=== PATIENT | male | born 1960 | race Caucasian/White ===

== ENCOUNTER 2018-10-14 09:35 | Emergency (ER) | payer BC, OTHER ==
[2018-10-14] MEDS ORDERED: KETOROLAC 30 MG/ML VIAL IVP ONE (10:01)
[2018-10-14] MEDS ORDERED: DIAZEPAM (VALIUM) 5MG/ML **10ML VIAL IVP ONE (10:01)
[2018-10-14] MEDS ORDERED: 0.9% SODIUM CHLORIDE 250ML BAG IV ONE (10:01)
[2018-10-14] MEDS ORDERED: 0.9 % SODIUM CHLORIDE 1000ML 1,000 ML IV PRN (10:01)
--- NOTE | 2018-10-14 10:01 | Emergency Department Record ---
History of Present Illness - General Chief Complaint: Back Pain/Injury Stated Complaint: BACK PAIN/ABD PAIN Time Seen by Provider: 10/14/18 09:53 Source: Patient Mode of Arrival: Ambulatory - History of Present Illness Initial Comments: Pt with 4 days of pain in the left lower back. No trauma, injury, fall, or lifting. No urinary pain or blood, no fever, no N/V/D. Pain at times is intense and radiates across the left lower abdomen to the suprapubic area and to the tip of his penis. No testicular or scrotal pain. Saw Chiropractor with some relief. Pain in bed is better if lying supine "with my feet together" - any movement exacerbates the "spasms". 11:00AM pt recalls that her recently painted a room at home and was moving furniture. Lifting and moving. MD Complaint: Back pain Onset/Timin -: Days(s) Improves With: None Worsens With: None Associated Symptoms: Abdominal pain, Fever/chills, Nausea/vomiting - Related Data Home Medications Medication Instructions Recorded Confirmed Last Taken Tamsulosin HCl [Flomax] 0.4 mg PO DAILY 10/14/18 10/14/18 10/13/18 Previous Rx's Medication Instructions Recorded Diazepam [Valium] 10 mg PO Q8HR PRN 3 Days #9 tablet 10/14/18 Ibuprofen [Motrin] 800 mg PO Q8H PRN 5 Days #40 tab 10/14/18 Allergies Allergy/AdvReac Type Severity Reaction Status Date / Time No Known Drug Allergies Allergy Verified 10/14/18 09:50 Travel Screening - Travel/Exposure Within Last 30 Days Have you traveled within the last 30 days?: No - Travel/Exposure Within Last Year Have you traveled outside the [place] in the last year?: No - Additonal Travel Details Have you been exposed to anyone with a communicable illness?: No - Travel Symptoms Symptom Screening: None Review of Systems Constitutional: Denies: Chills, Fever, Night sweats, Weakness Eyes: Denies: Eye discharge, Photophobia ENT: Denies: Congestion, Ear pain Respiratory: Denies: Cough, Dyspnea Cardiovascular: Denies: Arrhythmia, Chest pain, Syncope Endocrine: Denies: Fatigue, Polydipsia, Polyuria Gastrointestinal: Reports: As per HPI, Abdominal pain Genitourinary: Denies: Discharge, Dysuria, Hematuria, Testicular pain, Urgency Musculoskeletal: Reports: As per HPI, Back pain Skin: Denies: Bruising, Rash Neurological: Denies: Abnormal gait, Headache, Tingling Psychiatric: Denies: Anxiety Hematological/Lymphatic: Denies: Anemia, Easy bleeding Past Medical History - SOCIAL HISTORY Smoking Status: Never smoker Alcohol Use: Heavy Alcohol Use Comment: 6 beers daily Drug Use: None - RESPIRATORY Hx Respiratory Disorders: No - CARDIOVASCULAR Hx Cardio Disorders: No - NEURO Hx Neuro Disorders: No - GI Hx GI Disorders: No - Hx Genitourinary Disorders: Yes Hx Prostate Problems: Yes - ENDOCRINE Hx Endocrine Disorders: No - MUSCULOSKELETAL Hx Musculoskeletal Disorders: No - PSYCH Hx Psych Problems: No - HEMATOLOGY/ONCOLOGY Hx Hematology/Oncology Disorders: No Family Medical History Any Significant Family History?: No Physical Exam - General General Appearance: Alert, Oriented x3, Cooperative, Moderate distress - Head Head exam: Atraumatic - Eye Eye exam: Normal appearance, PERRL - ENT ENT exam: Normal exam, Mucous membranes moist, Normal external ear exam, Normal orophraynx, TM's normal bilaterally - Neck Neck exam: Normal inspection, Full ROM. negative: Tenderness - Respiratory Respiratory exam: Normal lung sounds bilaterally. negative: Respiratory distress - Cardiovascular Cardiovascular Exam: Regular rate, Normal rhythm, Normal heart sounds - GI/Abdominal GI/Abdominal exam: Soft, Normal bowel sounds, Guarding, Tenderness (left lower lateral abd. ). negative: Distended, Rebound, Rigid - exam: Circumcision, Normal inspection. negative: Scrotal swelling, Testicular tenderness, Urethral discharge - Extremities Extremities exam: Normal inspection, Full ROM. negative: Calf tenderness, Tenderness - Back Back exam: Reports: Muscle spasm, Paraspinal tenderness, Tenderness (Intense pain to palpation point tender at L4-5 on the left with muscle spasm. Radiates to piriformis area left. No skin lesions. ) - Neurological Neurological exam: Alert, CN II-XII intact, Oriented X3, Reflexes normal - Psychiatric Psychiatric exam: Agitated, Normal affect, Normal mood - Skin Skin exam: Normal color. negative: Rash Course Vital Signs 10/14/18 09:44 Temperature 98.3 F Pulse Rate 78 Respiratory 20 Rate Blood Pressure 155/98 Pulse Ox 99 - Reevaluation(s) Reevaluation #1: 10/14/18 11:00 Resting with decreased spasm. Sat up and spasms returned. Long talk regarding the importance of meds and stretching. Will see his Chiropractor Tuesday. Taking the Motrina nd po Valium at home. No Alcohol or driving with meds. Medical Decision Making - Lab Data Result diagrams: 10/14/18 09:52 10/14/18 09:52 Disposition Disposition: Discharge Clinical Impression: Spasm of back muscles, Lumbar pain Disposition: Home, Self-Care Condition: (2) Stable Instructions: Muscle Spasm (ED), Lower Back Exercises (ED), Cold Compress or Soak (ED) Additional Instructions: Discharge Instructions: Return to ED if your symptoms worsen or if you have any concerns. Motrin and Valiem as directed. Follow-up with your family doctor in 3-5 days as directed. Prescriptions: Diazepam [Valium] 10 mg PO Q8HR PRN 3 Days #9 tablet PRN Reason: Muscle Spasms Ibuprofen [Motrin] 800 mg PO Q8H PRN 5 Days #40 tab PRN Reason: Pain - Mild To Moderate (1-7) Forms: Patient Portal Access Quality - Quality Measures Quality Measures: N/A - Blood Pressure Screening Does Patient Have Any of the Following: No Blood Pressure Classification: Hypertensive Reading Systolic Measurement: 151 Diastolic Measurement: 91 Screening for High Blood Pressure: < Pre-Hypertensive BP, F/U Documented > [ [id number]] Pre-Hypertensive Follow-up Interventions: Follow-up with rescreen every year.
[2018-10-14 10:11] LABS: BASO % 0.3 % (0-6); EOS % 1.7 % (0-6); GRAN % 65.1 % (47-80); HEMATOCRIT 46.3 % (42.0-52.0); HEMOGLOBIN 15.9 gm/dl (14.0-18.0); LYMPH % 24.3 % (16-45); MEAN CELL VOLUME 90.3 fl (81-97); MEAN CORPUSCULAR HGB CONC 34.3 g/dl (32-36); MEAN PLATELET VOLUME 9.8 fl (7.4-10.4); MONO % 8.6 % (0-9); PLATELET COUNT 258 K/uL (130-400); RED BLOOD COUNT 5.13 M/uL (4.40-5.70); RED CELL DISTRIBUTION WIDTH 12.2 % (11.5-14.5); WHITE BLOOD COUNT W/O DIFF 6.5 K/uL (4.2-12.2)
[2018-10-14 10:23] LABS: URINE APPEARANCE CLEAR; URINE BILIRUBIN NEGATIVE (NEGATIVE); URINE BLOOD NEGATIVE (NEGATIVE); URINE COLOR YELLOW; URINE GLUCOSE (UA) NEGATIVE (NEGATIVE); URINE KETONE 15 mg/dL (NEGATIVE); URINE LEUKOCYTE ESTERASE NEGATIVE (NEGATIVE); URINE NITRITE NEGATIVE (NEGATIVE); URINE PROTEIN NEGATIVE (NEGATIVE); URINE UROBILINOGEN 0.2 E.U./dL (0.20 - 1.00)
[2018-10-14 10:30] LABS: BLOOD UREA NITROGEN 12 mg/dL (6-20); CREATININE 0.9 mg/dL (0.7-1.2); EST GLOMERULAR FILTRATION RATE > 60 mL/min
[2018-10-14 10:32] LABS: GLUCOSE,RANDOM 116 mg/dL (74-109)
== END 2018-10-14 11:21 | disposition home or self-care (01) ==
LOC: ER 09:35
DX: M62.830 Muscle spasm of back (principal); M54.5 Low back pain
CPT/HCPCS: 99285 ×2; 96374; 96375; 85025; 80048; 81003; J1885; J3360